=== PATIENT | male | born 1995 | race Two or more races ===

== ENCOUNTER 2020-05-10 18:33 | Emergency (ER) | payer SELFPAY ==
[~2020-05-10] VITALS: Ht 167.6 cm; Wt 85.4 kg
--- NOTE | 2020-05-10 20:23 | PHYS DOC ---
Past Medical History Past Medical History: No Pertinent History Past Surgical History: No Surgical History Smoking Status: Current Every Day Smoker Alcohol Use: None General Adult EDM: Chief Complaint: HEMORRHOIDS HPI: HPI: Patient is a 24 year old male who is [place]-speaking presents with a chief complaint of rectal pain. Patient states he had rectal pain for the last 8 days progressively getting worse. Rectum was examined and it is consistent with a rectal abscess. Patient has an area that is fluctuant to the midline just anterior to the rectum. Patient is also febrile and tachycardic. Review of Systems: Review of Systems: Constitutional: Positive fever Eyes: Denies change in visual acuity. [] HENT: Denies nasal congestion or sore throat. [] Respiratory: Denies cough or shortness of breath. [] Cardiovascular: Positive palpitations GI: Denies abdominal pain, nausea, vomiting, bloody stools or diarrhea. [] : Denies dysuria. [] Musculoskeletal: Denies back pain or joint pain. [] Integument: Denies rash. [] Positive abscess Neurologic: Denies headache, focal weakness or sensory changes. [] Endocrine: Denies polyuria or polydipsia. [] Lymphatic: Denies swollen glands. [] Psychiatric: Denies depression or anxiety. [] Heart Score: Risk Factors: Risk Factors: DM, Current or recent (<one month) smoker, HTN, HLP, family history of CAD, obesity. Risk Scores: Score 0 - 3: 2.5% MACE over next 6 weeks - Discharge Home Score 4 - 6: 20.3% MACE over next 6 weeks - Admit for Clinical Observation Score 7 - 10: 72.7% MACE over next 6 weeks - Early Invasive Strategies Allergies: Allergies: Allergies Coded Allergies Type Severity Reaction Last Updated Verified No Known Drug Allergies 05/10/20 No Physical Exam: PE: Constitutional: Well developed, well nourished, no acute distress, non-toxic appearance. [] HENT: Normocephalic, atraumatic, bilateral external ears normal, oropharynx moist, no oral exudates, nose normal. [] Eyes: PERRLA, EOMI, conjunctiva normal, no discharge. [] Neck: Normal range of motion, no tenderness, supple, no stridor. [] Cardiovascular: Tachycardia Lungs & Thorax: Bilateral breath sounds clear to auscultation [] Abdomen: Bowel sounds normal, soft, no tenderness, no masses, no pulsatile masses. [] Skin: Warm, dry, no erythema, no rash. [] Abscess right to the midline anterior to the anus Back: No tenderness, no CVA tenderness. [] Extremities: No tenderness, no cyanosis, no clubbing, ROM intact, no edema. [] Neurologic: Alert and oriented X 3, normal motor function, normal sensory function, no focal deficits noted. [] Psychologic: Affect normal, judgement normal, mood normal. [] Current Patient Data: Vital Signs: Vital Signs Date Time Temp Pulse Resp B/P (MAP) Pulse Ox O2 Delivery O2 Flow Rate FiO2 05/10/20 19:10 101.0 122 19 163/89 (113) 98 Room Air 101.0 EKG: EKG: [] Radiology/Procedures: Radiology/Procedures: [] Impression: Comparison: None Findings: There is no significant abnormality of the visualized lung bases. There is no significant focal abnormality of the liver, spleen, pancreas, adrenal glands. There is a small accessory spleen. There is diffuse prominent hepatic steatosis. Both kidneys enhance without hydronephrosis. Gallbladder is present without obvious intraluminal abnormality by CT. Accurate evaluation of bowel is limited without oral contrast. Normal caliber appendix is visualized without adjacent inflammatory change. Bowel is not significantly dilated. No free fluid or free air. Urinary bladder is somewhat distended. There is fullness in region of the anus best seen on coronal image 42 series 4. Area of lower density in this region measures about 3.1 cm CC by 2.46 m transverse by about 3.1 m cc with internal density measurements of about 40 Hounsfield units. Impression: 1. There is nonspecific fullness and density in the region of the anus, area of hypodensity in this region which may be phlegmon versus very complex fluid. 2. There is diffuse hepatic steatosis. 3. Urinary bladder is somewhat distended. Course & Med Decision Making: Course & Med Decision Making Pertinent Labs and Imaging studies reviewed. (See chart for details) [] Patient underwent an I&D of his rectal rectal abscess. Patient received lidocaine approximately 5 cc for local anesthesia. Once successful anesthesia was achieved area was cleaned with soap and Betadine. A 15 blade was used to placed a 1 cm incision large amount of pus expressed loculations broken up flush with normal saline approximately 20 cc. Wound was then packed with half-inch iodoform. Treatment in the ER included Tylenol, normal saline, and Augmentin. Patient will be discharged home with prescription of Augmentin 875 1 tab p.o. twice daily. Patient advised to take Tylenol and ibuprofen as needed as needed for pain. Patient advised he can pull out the packing within 24 hours. Dragon Disclaimer: Dragon Disclaimer: This electronic medical record was generated, in whole or in part, using a voice recognition dictation system. Departure Departure Impression: Primary Impression: Perirectal abscess Disposition: 01 HOME, SELF-CARE Condition: IMPROVED Referrals: NO PCP (PCP) Patient Instructions: Abscess, Perineal Scripts Amoxicillin/Potassium Clav (AUGMENTIN 875-125 TABLET) 1 Each Tablet 1 TAB PO BID for 10 Days, #20 TAB 0 Refills Prov: MINAL BLANTON DO 05/10/20 Justicifation of Admission Dx: Justifications for Admission: Justification of Admission Dx: N/A MINAL BLANTON DO May 10, 2020 20:23
[2020-05-10 20:27] LABS: BASO % 0 % (0-3); EOS # 0.2 x10^3/uL (0.0-0.7); EOS % 2 % (0-3); HEMATOCRIT 44.3 % (39.0-53.0); HEMOGLOBIN 15.5 g/dL (13.0-17.5); LYMPH % 13 % (24-48); MEAN CORPUSCULAR HEMOGLOBIN 33 pg (25-35); MEAN CORPUSCULAR HGB CONC 35 g/dL (31-37); MEAN CORPUSCULAR VOLUME 95 fL (79-100); MONO # 1.4 x10^3/uL (0.0-1.1); MONO % 9 % (0-9); NEUT # 11.8 x10^3/uL (1.8-7.7); NEUT % 76 % (31-73); PLATELET COUNT 287 x10^3/uL (140-400); RED BLOOD COUNT 4.65 x10^6/uL (4.30-5.70); RED CELL DISTRIBUTION WIDTH 13.2 % (11.5-14.5); WHITE BLOOD COUNT 15.5 x10^3/uL (4.0-11.0)
[2020-05-10] MEDS ORDERED: LIDOCAINE 1% Multi-Dose 20 ML VIAL. INJ ONE (20:30)
[2020-05-10] MEDS ORDERED: AMOXICILLIN/K CLAV 875/125MG TABLET. PO ONE (20:30)
[2020-05-10] MEDS ORDERED: IV NORMAL SALINE 1000ML BAG 1,000 ML IV ONE (20:30)
[2020-05-10 20:34] LABS: CREATININE 1.2 mg/dL (0.7-1.3); GFR 74.4; POTASSIUM 3.8 mmol/L (3.5-5.1)
[2020-05-10] MEDS ORDERED: CONTRAST GIVEN. MC PRN (21:00)
[2020-05-10] MEDS ORDERED: IOHEXOL 300 MG/ML 100ML VIAL. IV ONE (21:00)
--- NOTE | 2020-05-10 21:33 | RAD ---
CT abdomen and pelvis with contrast History: Perirectal abscess Technique: After the administration of intravenous contrast, CT imaging was performed of the abdomen and pelvis. No oral contrast was given. Multiplanar images are reviewed. Exposure: One or more of the following individualized dose reduction techniques were utilized for this examination: 1. Automated exposure control 2. Adjustment of the mA and/or kV according to patient size 3. Use of iterative reconstruction technique. Comparison: None Findings: There is no significant abnormality of the visualized lung bases. There is no significant focal abnormality of the liver, spleen, pancreas, adrenal glands. There is a small accessory spleen. There is diffuse prominent hepatic steatosis. Both kidneys enhance without hydronephrosis. Gallbladder is present without obvious intraluminal abnormality by CT. Accurate evaluation of bowel is limited without oral contrast. Normal caliber appendix is visualized without adjacent inflammatory change. Bowel is not significantly dilated. No free fluid or free air. Urinary bladder is somewhat distended. There is fullness in region of the anus best seen on coronal image 42 series 4. Area of lower density in this region measures about 3.1 cm CC by 2.46 m transverse by about 3.1 m cc with internal density measurements of about 40 Hounsfield units. Impression: 1. There is nonspecific fullness and density in the region of the anus, area of hypodensity in this region which may be phlegmon versus very complex fluid. 2. There is diffuse hepatic steatosis. 3. Urinary bladder is somewhat distended. Electronically signed by: Vitor Hunt MD (05/10/2020 9:30 PM) [facility]
[2020-05-10 21:41] VITALS: BP 126/88
[2020-05-10] MEDS ORDERED: AMOX1TAB61 PO (22:15)
== END 2020-05-10 22:39 | disposition home or self-care (01) ==
LOC: ER 18:33
DX: K61.1 Rectal abscess (principal); F17.200 Nicotine dependence, unspecified, uncomplicated
CPT/HCPCS: 36415; 46040; 74177; 80048; 85025; 99285; J3490; J7030; Q9967; 99284